=== PATIENT | male | born 1970 ===

== ENCOUNTER 2019-01-19 23:17 | Emergency (ER) | payer MEDICAID ==
[~2019-01-19] VITALS: Ht 157.5 cm; Wt 77.0 kg
[2019-01-19 23:29] VITALS: BP 120/67
== END 2019-01-20 01:46 | disposition left against medical advice (07) ==
LOC: ER 23:18
DX: M54.6 Pain in thoracic spine (principal); N23 Unspecified renal colic; Z53.21 Procedure and treatment not carried out due to patient leaving prior to being seen by health care provider